=== PATIENT | female | born 1980 | race Caucasian/White ===

== ENCOUNTER 2020-05-13 11:25 | Outpatient (CLI) | payer SELFPAY ==
[2020-05-13 13:25] LABS: Prothrombin Time 12.7 Seconds (11.1-14.7)
== END 2020-05-13 11:26 | disposition home or self-care (01) ==
PROVIDERS: Visit Provider Internal Medicine Hematology & Oncology
DX: Z79.01 Long term (current) use of anticoagulants (principal)
CPT/HCPCS: 36415; 85610

== ENCOUNTER 2020-05-24 10:00 | Outpatient (RCR) | payer SELFPAY ==
[2020-05-24 11:41] LABS: INR 4.3; Prothrombin Time 40.6 Seconds (11.1-14.7)
== END 2020-08-22 23:59 | disposition home or self-care (01) ==
LOC: ANHLAB 10:00
PROVIDERS: Visit Provider Internal Medicine Hematology & Oncology
DX: Z51.81 Encounter for therapeutic drug level monitoring (principal); Z79.01 Long term (current) use of anticoagulants
CPT/HCPCS: 36415; 85610

== ENCOUNTER 2020-07-26 15:27 | Outpatient (RCR) | payer SELFPAY ==
[2020-06-21 16:49] LABS: Prothrombin Time 12.5 Seconds (11.1-14.7)
[2020-06-30 13:50] LABS: INR 2.4; Prothrombin Time 25.4 Seconds (11.1-14.7)
[2020-07-26 16:35] LABS: INR 2.3
== END 2020-09-19 23:59 | disposition home or self-care (01) ==
LOC: ANHLAB 15:27
PROVIDERS: Visit Provider Internal Medicine Hematology & Oncology
DX: Z51.81 Encounter for therapeutic drug level monitoring (principal); Z79.01 Long term (current) use of anticoagulants
CPT/HCPCS: 36415; 85610